=== PATIENT | male | born 1990 | race Caucasian/White ===

== ENCOUNTER 2020-01-05 21:02 | Emergency (ER) | payer MEDICAID ==
[2020-01-05] MEDS ORDERED: Lidocaine 1% with EPINEPHrine 1:100,000 20 ML MDV INFILT PRN (21:30)
--- NOTE | 2020-01-05 21:34 | EDM.PDOC ---
ED HPI GENERAL MEDICAL PROBLEM - General Stated Complaint: LACERATION TO FINGER Time Seen by Provider: 01/05/20 21:27 Source of Information: Reports: Patient - History of Present Illness INITIAL COMMENTS - FREE TEXT/NARRATIVE: Gianluca is a 29 y/o male who comes to the ER with a laceration to his left middle finger. He was working on a transmission when he cut the finger. Last tetanus was in 2018. - Related Data Allergies Allergy/AdvReac Type Severity Reaction Status Date / Time No Known Allergies Allergy Verified 01/05/20 21:16 Home Meds: Home Meds . [No Known Home Meds] 01/05/20 [History] Review of Systems - Review of Systems Review Of Systems: See Below Constitutional: Reports: No Symptoms Eyes: Reports: No Symptoms Ears: Reports: No Symptoms Nose: Reports: No Symptoms Mouth/Throat: Reports: No Symptoms Respiratory: Reports: No Symptoms Cardiovascular: Reports: No Symptoms GI/Abdominal: Reports: No Symptoms Genitourinary: Reports: No Symptoms Musculoskeletal: Reports: No Symptoms Skin: Reports: Wound (laceration to left middle finger) Neurological: Reports: No Symptoms Psychiatric: Reports: No Symptoms ED EXAM, GENERAL - Physical Exam Exam: See Below Exam Limited By: No Limitations General Appearance: Alert, WD/WN, No Apparent Distress Ears: Hearing Grossly Normal Nose: Normal Inspection Throat/Mouth: Normal Voice Head: Atraumatic, Normocephalic Neck: Normal Inspection Respiratory/Chest: No Respiratory Distress Cardiovascular: Other (Not examined) GI/Abdominal: Soft (Male) Exam: Deferred Rectal (Males) Exam: Deferred Back Exam: Normal Inspection Extremities: Other (note 2 cm laceration to anterior left middle finger, clean edges, mild b leeding; PIP/DIP joints intact) Neurological: Alert, Oriented, CN II-XII Intact Psychiatric: Normal Affect, Normal Mood Skin Exam: Warm, Dry, Intact, Normal Color Lymphatic: No Adenopathy ED TRAUMA PROCEDURES - Laceration/Wound Repair Left Anterior Digit - 3rd (Middle) Lac/Wound Length In cm: 2 Appearance: Subcutaneous Distal NVT: Neuro & Vascular Intact, No Tendon Injury Anesthetic Type: Digital Local Anesthesia - Lidocaine (Xylocaine): 1% with EPI Local Anesthetic Volume: 3cc Skin Prep: Chlorhexidine (Hibiciens), Providone-Iodine (Betadine) Exploration/Debridement/Repair: Wound Explored, No Foreign Material Found Closed With: Sutures Suture Size: 4-0 Suture Type: Other (Ethilon) Sterile Dressing Applied: Nurse Tetanus Status Addressed: Yes Complications: No Progress/Comments: Patient tolerated procedure well. EBL=minimal Course - Vital Signs Text/Narrative:: The patient was seen by the [facility]. The laceration on his left middle finger was repaired. See Procedure note. His tetanus was verified as current. He was given discharge instructions and left he ER in stable condition. - Orders/Labs/Meds Orders: Active Orders 24 hr Category Date Time Status Lidocaine 1% w/EPINEPHrine [Xylocaine 1% with Med 01/05/20 21:30 Active EPINEPHrine 1:100,000] 20 ml INFILT ONETIME PRN Medication Orders Lidocaine/Epinephrine (Xylocaine 1% With Epinephrine 1:100,000) 20 ml INFILT ONETIME PRN PRN Reason: Other Meds: Medications Generic Name Dose Route Start Last Admin Trade Name Freq PRN Reason Stop Dose Admin Lidocaine/Epinephrine 20 ml 01/05/20 21:30 Xylocaine 1% With Epinephrine 1:100,000 INFILT ONETIME PRN Other Departure - Departure Time of Disposition: 21:53 Disposition: Home, Self-Care 01 Condition: Good Clinical Impression: Laceration of finger of left hand Qualifiers: Encounter type: initial encounter Finger: middle finger Damage to nail status: without damage Foreign body presence: without foreign body Qualified Code(s): S61.213A - Laceration without foreign body of left middle finger without damage to nail, initial encounter - Discharge Information Instructions: Sutured Wound Care, [id number] Referrals: PCP,None [Primary Care Provider] - Additional Instructions: -Keep the dressing dry and intact for 24 hours. Then you may remove the dressing and wash with soap and water. Then reapply antibiotic ointment and a bandage. -The local anesthesia may last about 2-3 hours so your finger may be numb. -Use acetaminophen or ibuprofen as needed for pain. -Watch for signs of infection including fever, redness, or drainage and report to your PCP. -Make an appt in 10-14 days for suture removal -Return to the ER for any concerns - My Orders Last 24 Hours: My Active Orders 01/05/20 21:30 Lidocaine 1% w/EPINEPHrine [Xylocaine 1% with EPINEPHrine 1:100,000] 20 ml INFILT ONETIME PRN - Assessment/Plan Last 24 Hours: My Active Orders 01/05/20 21:30 Lidocaine 1% w/EPINEPHrine [Xylocaine 1% with EPINEPHrine 1:100,000] 20 ml INFILT ONETIME PRN
== END 2020-01-05 22:04 | disposition home or self-care (01) ==
LOC: VM.ED 21:02
DX: S61.213A Laceration without foreign body of left middle finger without damage to nail, initial encounter (principal); W26.9XXA Contact with unspecified sharp object(s), initial encounter; Y92.89 Other specified places as the place of occurrence of the external cause; Y99.0 Civilian activity done for income or pay
CPT/HCPCS: 12001; 99282-25; 99283-GF

== ENCOUNTER 2021-09-30 17:06 | Emergency (ER) | payer MEDICAID | END 2021-09-30 18:50 | disposition home or self-care (01) | LOC: VM.ED 17:06 | DX: S61.216A Laceration without foreign body of right little finger without damage to nail, initial encounter (principal); Z72.0 Tobacco use; W26.8XXA Contact with other sharp object(s), not elsewhere classified, initial encounter | CPT/HCPCS: 12001; 99282-25; 99283 ==